=== PATIENT | male | born 1940 | race Caucasian/White ===

== ENCOUNTER 2022-07-07 09:15 | Outpatient (RCR) | payer MEDICARE, BC, OTHER, SELFPAY | END 2022-08-04 16:15 | disposition home or self-care (01) | PROVIDERS: PCP Family Medicine; Visit Provider Family Medicine | DX: M70.61 Trochanteric bursitis, right hip (principal); Z51.89 Encounter for other specified aftercare | CPT/HCPCS: 97110; 97140; 97162; 97530 ==

== ENCOUNTER 2024-02-19 08:45 | Outpatient (RCR) | payer MEDICARE, OTHER, SELFPAY | END 2024-05-24 14:06 | disposition home or self-care (01) | PROVIDERS: PCP Family Medicine; Visit Provider Family Medicine | DX: S16.1XXA Strain of muscle, fascia and tendon at neck level, initial encounter (principal); M54.2 Cervicalgia; M25.60 Stiffness of unspecified joint, not elsewhere classified; Z51.89 Encounter for other specified aftercare | CPT/HCPCS: 97110; 97140; 97161 ==

== ENCOUNTER 2024-09-11 09:00 | Outpatient (RCR) | payer MEDICARE, OTHER, SELFPAY | END 2025-01-09 23:59 | disposition home or self-care (01) | PROVIDERS: PCP Family Medicine; Visit Provider Family Medicine | DX: M25.552 Pain in left hip (principal); M54.42 Lumbago with sciatica, left side; M16.12 Unilateral primary osteoarthritis, left hip; M51.360 Other intervertebral disc degeneration, lumbar region with discogenic back pain only; Z51.89 Encounter for other specified aftercare | CPT/HCPCS: 97110; 97140; 97162 ==